=== PATIENT | male | born 1950 | race Two or more races ===

== ENCOUNTER → 2016-12-20 | Outpatient (CLI) | payer OTHER, MEDICAID | LOC: BHLMT 13:30 | PROVIDERS: ATTEND Internal Medicine Cardiovascular Disease | DX: R07.9 Chest pain, unspecified (principal); E78.5 Hyperlipidemia, unspecified | CPT/HCPCS: 78452; 93017; A9500 ==

== ENCOUNTER 2017-01-09 04:52 | Observation (INO) | payer OTHER, MEDICAID ==
[2017-01-09] MEDS ORDERED: NS 1,000 ML IV ONE (06:10)
[2017-01-09] MEDS ORDERED: FAMOTIDINE 20 MG TAB PO ONE (06:10)
[2017-01-09] MEDS ORDERED: DIAZEPAM 5 MG TAB PO ONE (06:10)
[2017-01-09] MEDS ORDERED: diphenhydrAMINE 25 MG CAP PO ONE ×2 (06:10→06:35)
[2017-01-09] MEDS ORDERED: ASPIRIN EC 325 MG TAB PO ONE ×2 (06:10→06:36)
--- NOTE | 2017-01-09 06:28 | CPEKG ---
Heart Rate: 56 RR Interval: 1071 P-R Interval: 160 QRSD Interval: 90 QT Interval: 484 QTC Interval: 468 P [place]: 39 QRS [place]: 42 T Wave [place]: 107 EKG Severity - ABNORMAL ECG - EKG Impression: SINUS RHYTHM EKG Impression: ABNORMAL T, PROBABLE ISCHEMIA, ANT-LAT LEADS Electronically Signed By: Kj Lee 10-Jan-2017 13:11:39
[2017-01-09] MEDS ORDERED: FAMOTIDINE 20 MG TAB ONE (06:36)
[2017-01-09] MEDS ORDERED: DIAZEPAM 5 MG TAB ONE (06:36)
[2017-01-09] MEDS ORDERED: fentaNYL 100 MCG/2 ML INJ ONE ×2 (06:38→07:52)
[2017-01-09] MEDS ORDERED: MIDAZOLAM 2 MG/2 ML VIAL ONE (06:38)
[2017-01-09] MEDS ORDERED: LIDOCAINE 1% 300 MG/30 ML SDV ONE (06:38)
[2017-01-09] MEDS ORDERED: IOPAMIDOL (ISOVUE-370) 150 ML BTL IV ONE (06:39)
[2017-01-09 06:42] LABS: % IMMATURE GRANULYOCYTES 0.6 % (0.0-1.1); ABSOLUTE IMMATURE GRANULOCYTES 0.04 10^3/uL (0.00-0.10); ADD DIFF? NO; ADD MORPH? NO; ADD SCAN? NO; ATYPICAL LYMPHOCYTE FLAG 0 (0-99); FRAGMENT RBC FLAG 0 (0-99); HEMATOCRIT 44.2 % (40.0-51.0); HEMOGLOBIN 15.9 g/dL (13.7-17.5); LEFT SHIFT FLG 0 (0-99); LIPEMIA HEMOLYSIS FLAG 90 (0-99); MEAN CELL HEMOGLOBIN 29.7 pg (27.9-34.1); MEAN CELL VOLUME 82.6 fL (81.5-99.8); MEAN PLATELET VOLUME 10.1 fL (8.7-11.7); PLATELET CLUMPS FLAG 0 (0-99); PLATELET COUNT 136 10^3/uL (150-400); RED BLOOD CELL COUNT 5.35 10^6/uL (4.40-6.38)
[2017-01-09] MEDS ORDERED: CLOPIDOGREL BISULFATE 75 MG TAB ONE (06:44)
--- NOTE | 2017-01-09 06:45 | PDHPUP ---
History & Physical Update H&P update statement: This history and physical update is based on an assessment of the patient which was completed after admission or registration (within 24 hours), but prior to the surgery/procedure. H&P update: H&P reviewed & patient examined, no change in patient's condition since H&P completed
--- NOTE | 2017-01-09 06:45 | PDPROPOC ---
Sedation Plan of Care Sedation Plan of Care: vital signs stable, mental status noted, patient educated of risks, benefits, alternatives, patient can tolerate sedation ASA Classification: ASA 2 Planned drugs: fentanyl, midazolam Mallampati Score: Class 2 Mallampati Reference Image: Patient passed 3-3-2 rule?: Yes
[2017-01-09 06:51] LABS: INR 1.07 (0.83-1.16); PROTIME(PATIENT) 13.8 SEC (12.0-15.0)
[2017-01-09] MEDS ORDERED: CLOPIDOGREL BISULFATE 75 MG TAB PO ONE ×2 (07:00→07:58)
[2017-01-09 07:05] LABS: ANION GAP 15 mEq/L (8-16); CALCIUM 9.3 mg/dL (8.5-10.4); CARBON DIOXIDE 22 mEq/l (22-31); CHLORIDE 107 mEq/L (97-110); CHOLESTEROL 106 mg/dL (140-220); CHOLESTEROL/HDL RATIO 2.72 RATIO (1.00-4.97); GLOMERULAR FILTRATION RATE > 60; GLUCOSE 121 mg/dL (70-100); HIGH DENSITY LIPOPROTEIN 39 mg/dL (40-65); LDL/HDL RATIO 1.26 RATIO (1.00-3.64); LOW DENSITY LIPOPROTEIN 49 mg/dL (80-100); NON-HIGH DENSITY LIPOPROTEIN 67 mg/dL (90-129); POTASSIUM 4.3 mEq/L (3.5-5.2); SODIUM 144 mEq/L (134-144); TRIGLYCERIDE 94 mg/dL (40-150); VERY LOW DENSITY LIPOPROTEINS 18 mg/dL (8-25)
[2017-01-09] MEDS ORDERED: BIVALIRUDIN 250 MG/5 ML VIAL IV ONE (07:23)
[2017-01-09] MEDS ORDERED: ATROPINE SULFATE 1 MG/10 ML SYR ONE (07:23)
[2017-01-09] MEDS ORDERED: hydrALAZINE 20 MG/ML VIAL ONE (07:56)
[2017-01-09] MEDS ORDERED: NITROGLYCERIN 0.4 MG BTL SL PRN (07:58)
[2017-01-09] MEDS ORDERED: HYDROCODONE/APAP 5/325 TAB PO PRN (07:58)
[2017-01-09] MEDS ORDERED: ONDANSETRON 4 MG/2 ML VIAL IVP PRN (07:58)
[2017-01-09] MEDS ORDERED: OXYCODONE/APAP 5/325 TAB PO PRN (07:58)
[2017-01-09] MEDS ORDERED: TEMAZEPAM 15 MG CAP PO PRN (07:58)
[2017-01-09] MEDS ORDERED: ATROPINE SULFATE 1 MG/10 ML SYR IVP PRN (07:58)
[2017-01-09] MEDS ORDERED: LORazepam 2 MG/ML INJ IVP PRN (07:58)
[2017-01-09] MEDS ORDERED: hydrALAZINE 20 MG/ML VIAL IVP PRN (08:01)
--- NOTE | 2017-01-09 08:34 | CPIP ---
[f rep st] INVASIVE CARDIAC PROCEDURE DATE OF PROCEDURE: 01/09/2017 INDICATION FOR PROCEDURE: Positive stress test. Chest pain. History of coronary disease. PROCEDURE: 1. Nonselective right groin sheathogram. 2. Bilateral selective coronary angiography. 3. Left heart catheterization. 4. Left ventriculogram. 5. Percutaneous coronary intervention of mid right coronary artery utilizing Synergy 3.5 x 20 mm mamta g-eluting stent. BRIEF HISTORY: This is a 66-year-old male, with history of a recent PCI to his LAD. This procedure was done at an outside hospital. The patient was evaluated in our office and for continuing anginal symptoms. He had a stress test which showed gross changes in his ECG during the exertional portion o f the stress test with chest pain, with dynamic ST changes. The patient also was found to have a fix ed defect in the anterior wall with an ejection fraction of 39%, which is significantly reduced from his baseline of apparently 65%. Given all these issues, the patient was consented for left heart cat heterization. After informed consent, the patient was brought to [facility] where the right groin was prepped and draped in sterile fashion. The patient was administered Plavix p.o. and a nel rt 6-Greek sheath was then placed in the right common femoral artery, verified angiographically. Th e JL4 catheter was then advanced to the left coronary artery. Images of the left coronary artery rev ealed normal os, prox, left main. The distal left main did have what appeared to be 30%-40% tubular narrowing. There was a left circumflex artery which appeared to be patent with mild plaque disease d istally in its 2 marginal branches. There was a ramus intermedius which appeared to be healthy and f ree of disease. There was an LAD which had ostial 30%-40% narrowing. The LAD was extensively stente d in its proximal aspect and these stents appeared to be widely patent. There was a medium size diag onal artery coming off the proximal portion of the stented area, which had an ostial 80%-90% pinch; h owever, there was ROSALINO-3 flow through the vessel and again this was a small to medium diagonal artery . Distally the LAD appeared to be widely patent. After these images were obtained, the JL4 catheter was removed. A JR4 catheter was advanced to the right coronary artery. Images of the right coronar y artery revealed normal ostial RCA. In the mid RCA, there appeared to be a focal tubular area of 70 % narrowing with excessive haziness, distally the RCA appeared to be widely patent. The RPD and R+ a ppeared to be healthy and free of disease. After these images were obtained, the JR4 catheter was re moved. A pigtail catheter was advanced to left ventricle. EDP is 15 mmHg. Left ventriculogram in t he BHAT projection revealed EF of 50% with no wall motion abnormalities. No pullback gradient between the LV and the aorta. INTERVENTION REPORT: At this time, the patient was started on Angiomax bolus and drip. A JR4 6-Fren ch guide catheter was advanced in the right coronary artery. A Choice PT wire was placed down the RP DA. Predilatation commenced with a 3.5 x 15 mm compliant balloon at 10 atmospheres. As this was per formed, angiography obtained which showed improved patency of the stented area with no dissection. W e then proceeded with stenting of the vessel with 3.5 x 20 mm Synergy drug-eluting stent. This was d eployed successfully at 16 atmospheres. After deployment, angiography obtained which showed excellen t patency of the stented areas with no evidence of dissection or perforation. The guide catheter was removed over a guidewire. The right groin was closed with a 6-Greek Angio-Seal. The patient ekta ated the procedure well with no complications. IMPRESSION: 1. Successful percutaneous coronary intervention of hazy tubular calcified lesion in the mid right c oronary artery with a Synergy 3.5 x 20 mm drug-eluting stent. 2. Patent stents in the left anterior descending with ostial pinch of a medium-sized diagonal artery which had ROSALINO-3 flow. 3. Low normal ejection fraction. PLAN: The patient will be admitted overnight. If clinically stable, will be discharged in 24 hours. Remain on Plavix and aspirin indefinitely. The patient does have an ostial pinch of a small to med ium diagonal artery coming off the left anterior descending stents. This was most likely secondary t o the stents placed in the left anterior descending. Intervening on this vessel could be problematic secondary to the fact that the diagonal arteries coming off a stented portion and potentially wiring the vessel could lead to potentially either dissecting the vessel or difficulty in delivering any ty pe of equipment across the stented area into the diagonal artery. We will continue to follow the pat ient as an outpatient if he is discharged successfully tomorrow. /[id number]/MODL
--- NOTE | 2017-01-09 08:37 | CPEKG ---
Heart Rate: 77 RR Interval: 779 P-R Interval: 168 QRSD Interval: 82 QT Interval: 396 QTC Interval: 449 P [place]: 36 QRS [place]: 52 T Wave [place]: 134 EKG Severity - ABNORMAL ECG - EKG Impression: SINUS RHYTHM EKG Impression: ABNORMAL T, CONSIDER ISCHEMIA, ANT-LAT LEADS Electronically Signed By: Kj Lee 10-Jan-2017 13:11:34
[2017-01-09] MEDS: ASPIRIN EC 325 MG TAB PO SCH (11:22)
--- NOTE | 2017-01-09 14:51 | ASMTCMCOM ---
CM Note CM Note Notes: 01/09/2017 Case Management Note Reviewed chart. Pt admitted for heart cath. No case management d/c needs identified d/t pt age, marital status and activity levels prior to admission. There are no PT or OT evals ordered. Case Management d/c poc: Home independent with family support when medically stable with follow up as directed. Case Management available if needs change. Date Signed: 01/09/2017 02:51 PM Electronically Signed By:Alice Farooq RN
[2017-01-09] MEDS ORDERED: ATORVASTATIN CALCIUM 40 MG TAB PO SCH (21:00)
[2017-01-09] MEDS ORDERED: METOPROLOL SUCCINATE XR 50 MG TAB PO SCH (21:00)
[2017-01-10 04:34] LABS: % IMMATURE GRANULYOCYTES 0.4 % (0.0-1.1); ABSOLUTE IMMATURE GRANULOCYTES 0.04 10^3/uL (0.00-0.10); ADD DIFF? NO; ADD MORPH? NO; ADD SCAN? NO; ATYPICAL LYMPHOCYTE FLAG 0 (0-99); FRAGMENT RBC FLAG 0 (0-99); HEMATOCRIT 41.5 % (40.0-51.0); HEMOGLOBIN 14.3 g/dL (13.7-17.5); LEFT SHIFT FLG 0 (0-99); LIPEMIA HEMOLYSIS FLAG 90 (0-99); MEAN CELL HEMOGLOBIN 28.8 pg (27.9-34.1); MEAN CELL HEMOGLOBIN CONCENTR. 34.5 g/dL (32.4-36.7); MEAN CELL VOLUME 83.7 fL (81.5-99.8); MEAN PLATELET VOLUME 10.6 fL (8.7-11.7); PLATELET CLUMPS FLAG 30 (0-99); PLATELET COUNT 135 10^3/uL (150-400); RED BLOOD CELL COUNT 4.96 10^6/uL (4.40-6.38); RED CELL DISTRIBUTION WIDTH 13.2 % (11.5-15.2)
[2017-01-10 04:45] LABS: ANION GAP 13 mEq/L (8-16); CALCIUM 8.5 mg/dL (8.5-10.4); CARBON DIOXIDE 22 mEq/l (22-31); CHLORIDE 104 mEq/L (97-110); GLOMERULAR FILTRATION RATE > 60; GLUCOSE 107 mg/dL (70-100); POTASSIUM 3.4 mEq/L (3.5-5.2); SODIUM 139 mEq/L (134-144)
[2017-01-10 07:52] VITALS: BP 133/88; PULSE 64; RESP 17; TEMP 99.9; O2SAT 92
[2017-01-10] MEDS: ASPIRIN EC 325 MG TAB PO SCH (08:04)
[2017-01-10] MEDS ORDERED: PNEUMOC 13-VAL CONJ-DIP CRM/PF 0.5 ML SYR IM ONE (09:00)
[2017-01-10] MEDS ORDERED: CLOPIDOGREL BISULFATE 75 MG TAB PO SCH (09:00)
--- NOTE | 2017-01-10 09:58 | CPEKG ---
Heart Rate: 73 RR Interval: 822 P-R Interval: 172 QRSD Interval: 82 QT Interval: 388 QTC Interval: 428 P [place]: 42 QRS [place]: 49 T Wave [place]: 120 EKG Severity - ABNORMAL ECG - EKG Impression: SINUS RHYTHM EKG Impression: ABNORMAL T, PROBABLE ISCHEMIA, ANT-LAT LEADS Electronically Signed By: Kj Lee 10-Jan-2017 13:11:26
[2017-01-10] MEDS ORDERED: BIVALIRUDIN 250 MG/5 ML VIAL IV ONE (11:35)
--- NOTE | 2017-01-10 12:20 | GDS ---
[f rep st] DISCHARGE SUMMARY DISCHARGE DIAGNOSES: 1. Coronary artery disease with a 70% stenosis within the mid right coronary artery, which was stent ed with a 3.5 x 20 mm Synergy drug-eluting stent. 2. History of anterior myocardial infarction on October 16, 2016, status post drug-eluting stent to the mid left anterior descending at [facility]. 3. Hyperlipidemia. 4. Hypertension. 5. Groin hematoma post stenting. 6. Diabetes. HOSPITAL COURSE: For a detailed H and P, please see prior dictation. Briefly, the patient is a 66-y ear-old Occitan-speaking only male with a history of coronary artery disease. He experienced an ante rior RI on October 16, 2006, and was treated at [facility] with a drug-eluting stent to the mid LA D. At that time, he was also found to have a 70% mid RCA lesion, which was not intervened upon. He presented to our office complaining of intermittent sharp chest discomfort as well as dyspnea on exer tion. He had a nuclear stress test, which showed a depressed ejection fraction of 39%, which was new . There was also a previous anteroseptal infarct. He developed chest discomfort while on the treadm ill as well as EKG changes. Therefore, the decision was made to proceed with an angiogram. This was performed by Dr. Sanchez Krueger on 01/09/2017. His angiogram revealed a 70% stenosis within the m id right coronary artery, which was stented with a 3.5 x 20 mm drug-eluting Synergy stent. The LAD a nd left main had 30% to 40% stenosis. His prior placed stent was widely patent. The left circumflex had mild disease. The 1st ostial diagonal was pinched with a stenosis of 80% to 90%. This was smal l to medium and felt to be a high risk intervention. Therefore, intervention of this was not done. Following the procedure, he became nauseous and dry heaved. This caused a hematoma in his right groi n. Pressure was held immediately, and his groin is currently soft without evidence of ongoing hemato ma today. He denies any significant discomfort of his right groin. He denies any chest discomfort o r shortness of breath. He has been monitored on telemetry and has remained in normal sinus rhythm. PHYSICAL EXAMINATION: GENERAL: Patient appears in no acute distress. VITALS: Blood pressure 133/8 8, heart rate 64, oxygen saturation of 92% on room air, afebrile. LUNGS: Clear to auscultation. No wheezes, rhonchi, or crackles auscultated. CARDIAC: Regular rate and rhythm without any significan t murmurs, rubs, or gallops appreciated. EXTREMITIES: Palpable pulses bilaterally without any evide nce of edema. DIAGNOSTIC TESTING: The date of discharge, his EKG shows normal sinus rhythm with T-wave inversion t hroughout leads V2 through V6. This is not new and present on his prior EKGs. DISCHARGE MEDICATIONS: His medications will remain the same except he will discontinue aspirin 81 mg daily and begin aspirin 325 mg daily. I will continue metoprolol succinate 50 mg at bedtime, nitrog lycerin p.r.n. for chest pain, Plavix 75 mg daily, and Lipitor 80 mg daily. PLAN: The patient is currently stable and ready for discharge home. He has been given groin precaut ions. He is aware that he is to remain on aspirin and Plavix for a minimum of 1 year. He will follo w up in our office as scheduled on January 15 at 2:45 p.m. Greater than 30 minutes was spent coordinating the patient's care today. /[id number]/MODL
--- NOTE | 2017-01-10 15:34 | ASDISCHSUM ---
Discharge Information Plan Status:Home with No Needs Medically Cleared to Leave:01/09/2017 Discharge Date:01/10/2017 11:36 AM CM D/C Disposition:Home, Routine, Self-Care ADT D/C Disposition:Home, Routine, Self-Care Projected Discharge Date:01/10/2017 12:00 AM Transportation at D/C:Family Discharge Delay Reason: Follow-Up Date:01/10/2017 12:00 AM Discharge Slot: Final Diagnosis: Placement Information Patient Contact Information Contact Name:SOCORROVARELA Relationship: Address:[address] Work Phone: [facility] Phone: [facility]/Zip Code:[place] [address] Email: Financial Information Financial Class: Primary Plan Desc:MEDICARE OUTPATIENT Primary Plan Number:[id number] Secondary Plan Desc:MEDICAID [place] Secondary Plan Number:[id number] Assessment Information BC CM Progress Note CM Note CM Note Notes: 01/09/2017 Case Management Note Reviewed chart. Pt admitted for heart cath. No case management d/c needs identified d/t pt age, marital status and activity levels prior to admission. There are no PT or OT evals ordered. Case Management d/c poc: Home independent with family support when medically stable with follow up as directed. Case Management available if needs change. Date Signed: 01/09/2017 02:51 PM Electronically Signed By:Alice Farooq RN Intervention Information
== END 2017-01-10 11:36 | disposition home or self-care (01) ==
LOC: FCATH 04:52 → F2W 07:58
PROVIDERS: ADMIT Internal Medicine Cardiovascular Disease; ATTEND Internal Medicine Cardiovascular Disease
PROC: 027034Z Dilation of Coronary Artery, One Artery with Drug-eluting Intraluminal Device, Percutaneous Approach (ICD-10-PCS; principal; 2017-01-09)
PROC: B2151ZZ Fluoroscopy of Left Heart using Low Osmolar Contrast (ICD-10-PCS; principal; 2017-01-09)
PROC: B2111ZZ Fluoroscopy of Multiple Coronary Arteries using Low Osmolar Contrast (ICD-10-PCS; principal; 2017-01-09)
PROC: 4A023N7 Measurement of Cardiac Sampling and Pressure, Left Heart, Percutaneous Approach (ICD-10-PCS; principal; 2017-01-09)
DX: I25.10 Atherosclerotic heart disease of native coronary artery without angina pectoris (principal); I25.2 Old myocardial infarction; Z95.5 Presence of coronary angioplasty implant and graft; I10 Essential (primary) hypertension; E11.9 Type 2 diabetes mellitus without complications; Z87.891 Personal history of nicotine dependence; Z23 Encounter for immunization
CPT/HCPCS: 90670; 93005; 93458; C1725; C1760; C1769; C1874; C1887; C9600; G0009; J0360; J0583; J1644; J2250; J2405; J3010; Q9967; J0461